=== PATIENT | male | born 1940 | race Caucasian/White ===

== ENCOUNTER 2018-09-06 06:05 | Inpatient (IN) | payer MEDICARE ==
[~2018-09-06] VITALS: Ht 172.7 cm; Wt 94.6 kg
[2018-09-06] VITALS (18 sets, daily range): BP systolic 87–140; BP diastolic 52–64
[2018-09-06] MEDS ORDERED: ZESTRIL5 M1 PO (06:23)
[2018-09-06 06:47] LABS: HEMATOCRIT 49.3 % (39.0-50.0); HEMOGLOBIN 16.5 g/dl (14.0-18.0); IMMATURE GRANULOCYTES 0.5 % (0.0-5.0); MEAN CELL VOLUME 88.8 fL CALC (80.0-100.0); MEAN CORPUSCULAR HGB 29.7 pG CALC (26.0-32.0); MEAN CORPUSCULAR HGB CONC 33.5 g/L CALC (32.0-36.0); NEUT# 8.1 thou/uL (1.82-7.42); RED BLOOD COUNT 5.55 mill/uL (4.70-6.10)
[2018-09-06 07:26] LABS: URINE BLOOD DIPSTICK SMALL (NEGATIVE); URINE COLOR YELLOW; URINE GLUCOSE - DIPSTICK >=1000 mg/dL (NEGATIVE); URINE KETONE >=80 mg/dL (NEGATIVE); URINE LEUK ESTERASE TRACE (NEGATIVE); URINE NITRITE - DIPSTICK NEGATIVE (Negative); URINE PROTEIN - DIPSTICK 30 mg/dL (NEG-TRACE); URINE SPECIFIC GRAVITY 1.025
[2018-09-06 07:34] LABS: BARBITURATES NEGATIVE (NEGATIVE); COCAINE NEGATIVE (NEGATIVE); METHADONE NEGATIVE (NEGATIVE); OXCYCODONE NEGATIVE (NEGATIVE); TETRAHYDROCANNABIONOL NEGATIVE (NEGATIVE); TRICYLIC ANTIDEPRESSANTS NEGATIVE (NEGATIVE); URINE BILIRUBIN - DIPSTICK NEGATIVE (NEGATIVE)
[2018-09-06 07:36] LABS: ALBUMIN 2.9 g/dL (3.2-5.0); ALKALINE PHOSPHATASE 124 u/l (38-126); ANION GAP 26 (6-22 (CALC)); BUN 24 mg/dL (8-23); BUN/CREATININE RATIO 32 (12-20 (CALC)); CARBON DIOXIDE 14 mmol/l (22-30); CHLORIDE 97 mmol/l (95-108); CREATININE 0.7 mg/dL (0.7-1.3); ETHYL ALCOHOL 0 mg/dl (0-30); GFR > 60 ML/MIN (>=60 (CALC)); GFR FOR AFR.AMER. > 60 ML/MIN (>=60 (CALC)); POTASSIUM 4.1 mmol/l (3.5-5.1); SGOT/AST 13 u/l (19-48); SODIUM 132 mmol/l (137-146); TOTAL PROTEIN 5.9 g/dL (6.3-8.2)
[2018-09-06 07:40] LABS: URINE BACTERIA FEW hpf; URINE SQUAMOUS EPITHELIAL CELL FEW EPI/hpf (0-FEW); URINE WBC 50-100 WBC/hpf (0-5)
[2018-09-06 07:47] LABS: MYOGLOBIN 35 ng/mL (0 - 121)
[2018-09-06] MEDS ORDERED: MULTI VIT PO (13:18)
[2018-09-06 21:13] LABS: INTERNATIONAL NORMALIZED RATIO 1.2 RATIO (0.7-1.3); PROTHROMBIN TIME 12.7 SECONDS (9.0-12.5)
[2018-09-07] VITALS (25 sets, daily range): BP systolic 101–191; BP diastolic 46–102
[2018-09-07 05:51] LABS: IMMATURE GRANULOCYTES 0.8 % (0.0-5.0); MEAN CELL VOLUME 89.5 fL CALC (80.0-100.0); MEAN CORPUSCULAR HGB 30.3 pG CALC (26.0-32.0); MEAN CORPUSCULAR HGB CONC 33.9 g/L CALC (32.0-36.0); PLATELET COUNT 225 thou/uL (130-400); RED BLOOD COUNT 4.29 mill/uL (4.70-6.10); RED CELL DISTRI WIDTH 13.4 % (11.5-15.5)
[2018-09-07 05:58] LABS: ALBUMIN 2.4 g/dL (3.2-5.0); ALKALINE PHOSPHATASE 98 u/l (38-126); BILIRUBIN, TOTAL 0.7 mg/dL (0.0-1.4); BUN 18 mg/dL (8-23); BUN/CREATININE RATIO 31 (12-20 (CALC)); CHLORIDE 106 mmol/l (95-108); CREATININE 0.6 mg/dL (0.7-1.3); GFR > 60 ML/MIN (>=60 (CALC)); GFR FOR AFR.AMER. > 60 ML/MIN (>=60 (CALC)); LIPASE 17 u/l (23-300); MAGNESIUM 1.8 mg/dL (1.6-2.3); POTASSIUM 3.8 mmol/l (3.5-5.1); SGOT/AST 13 u/l (19-48); SODIUM 135 mmol/l (137-146); TOTAL PROTEIN 5.3 g/dL (6.3-8.2)
[2018-09-07 06:00] LABS: AMYLASE < 30 u/l (30-110); ANION GAP 16 (6-22 (CALC)); CARBON DIOXIDE 17 mmol/l (22-30)
[2018-09-07 06:51] LABS: HEMATOCRIT 38.4 % (39.0-50.0)
[2018-09-07 06:52] LABS: MANUAL DIFFERENTIAL YES; OTHER CELL TYPE 2
[2018-09-08] VITALS (11 sets, daily range): BP systolic 129–199; BP diastolic 53–88
[2018-09-08 05:17] LABS: ALBUMIN 2.4 g/dL (3.2-5.0); ALKALINE PHOSPHATASE 96 u/l (38-126); BILIRUBIN, TOTAL 0.7 mg/dL (0.0-1.4); BUN 11 mg/dL (8-23); BUN/CREATININE RATIO 24 (12-20 (CALC)); CHLORIDE 105 mmol/l (95-108); CREATININE 0.5 mg/dL (0.7-1.3); GFR > 60 ML/MIN (>=60 (CALC)); GFR FOR AFR.AMER. > 60 ML/MIN (>=60 (CALC)); MAGNESIUM 1.8 mg/dL (1.6-2.3); POTASSIUM 4.1 mmol/l (3.5-5.1); SGOT/AST 15 u/l (19-48); SODIUM 136 mmol/l (137-146); TOTAL PROTEIN 5.3 g/dL (6.3-8.2)
[2018-09-08 05:26] LABS: ANION GAP 14 (6-22 (CALC)); CARBON DIOXIDE 21 mmol/l (22-30); HEMATOCRIT 39.6 % (39.0-50.0); HEMOGLOBIN 13.3 g/dl (14.0-18.0); IMMATURE GRANULOCYTES 0.8 % (0.0-5.0); MEAN CELL VOLUME 88.8 fL CALC (80.0-100.0); MEAN CORPUSCULAR HGB 29.8 pG CALC (26.0-32.0); MEAN CORPUSCULAR HGB CONC 33.6 g/L CALC (32.0-36.0); NEUT# 5.99 thou/uL (1.82-7.42); RED BLOOD COUNT 4.46 mill/uL (4.70-6.10); RED CELL DISTRI WIDTH 13.4 % (11.5-15.5)
[2018-09-09 04:03] VITALS: BP 162/86
[2018-09-09 05:14] LABS: HEMOGLOBIN 13.5 g/dl (14.0-18.0); IMMATURE GRANULOCYTES 0.6 % (0.0-5.0); MEAN CELL VOLUME 87.9 fL CALC (80.0-100.0); MEAN CORPUSCULAR HGB 29.7 pG CALC (26.0-32.0); MEAN CORPUSCULAR HGB CONC 33.8 g/L CALC (32.0-36.0); NEUT# 6.26 thou/uL (1.82-7.42); RED BLOOD COUNT 4.55 mill/uL (4.70-6.10); RED CELL DISTRI WIDTH 13.6 % (11.5-15.5)
[2018-09-09 05:37] LABS: ALBUMIN 2.5 g/dL (3.2-5.0); ALKALINE PHOSPHATASE 105 u/l (38-126); ANION GAP 15 (6-22 (CALC)); BILIRUBIN, TOTAL 0.8 mg/dL (0.0-1.4); BUN 8 mg/dL (8-23); BUN/CREATININE RATIO 15 (12-20 (CALC)); CARBON DIOXIDE 22 mmol/l (22-30); CHLORIDE 103 mmol/l (95-108); CREATININE 0.5 mg/dL (0.7-1.3); GFR > 60 ML/MIN (>=60 (CALC)); GFR FOR AFR.AMER. > 60 ML/MIN (>=60 (CALC)); MAGNESIUM 1.7 mg/dL (1.6-2.3); POTASSIUM 3.6 mmol/l (3.5-5.1); SGOT/AST 14 u/l (19-48); SODIUM 136 mmol/l (137-146); TOTAL PROTEIN 5.5 g/dL (6.3-8.2)
[2018-09-09 08:22] VITALS: BP 165/91
[2018-09-09 11:00] VITALS: BP 149/75
[2018-09-09] MEDS ORDERED: LOSARTAN POT50 MG PO (14:54)
[2018-09-09] MEDS ORDERED: PANTOPRAZOLE SO40 M1 PO (14:54)
[2018-09-09] MEDS ORDERED: LOPRESSOR25 MG PO (14:54)
[2018-09-09] MEDS ORDERED: ROCEPHIN 2 GM2 GM IM (14:55)
[2018-09-09 16:01] VITALS: BP 167/79
== END 2018-09-09 17:10 | DRG 871 ==
LOC: ED 06:05 → ED-I 08:32 → ED 09:11 → MS2 09:12 → ICU 21:48 → MS2 09-07 10:27 → ICU 09-07 10:27 → MS2 09-08 13:14
PROVIDERS: Emergency Medicine; Internal Medicine; ADMIT Internal Medicine Nephrology; ATTEND Internal Medicine Nephrology
DX: A41.51 Sepsis due to Escherichia coli [E. coli] (principal); I63.81 Other cerebral infarction due to occlusion or stenosis of small artery; N39.0 Urinary tract infection, site not specified; E87.2 Acidosis; E87.1 Hypo-osmolality and hyponatremia; I95.9 Hypotension, unspecified; I10 Essential (primary) hypertension; E11.65 Type 2 diabetes mellitus with hyperglycemia; K80.20 Calculus of gallbladder without cholecystitis without obstruction; E86.0 Dehydration; R06.89 Other abnormalities of breathing
CPT/HCPCS: J1650; Q9967

== ENCOUNTER 2019-06-30 | Day surgery (SDC) | payer MEDICARE ==
[~2019-06-30] MED LIST: ASPIRIN81 MG PO; GABAPENTIN100 MG PO; GLIPIZIDE5 MG PO; LOPRESSOR25 MG PO; LOSARTAN POT50 MG PO; METFORMIN500 M2 PO; MULTI VIT PO; PANTOPRAZOLE SO40 M1 PO; ROCEPHIN 2 GM2 GM IM; ZESTRIL5 M1 PO
== END 2019-06-30 11:35 | disposition home health service (06) ==
PROC: 0VB08ZZ Excision of Prostate, Via Natural or Artificial Opening Endoscopic (ICD-10-PCS; principal; 2019-06-30)
DX: N40.1 Benign prostatic hyperplasia with lower urinary tract symptoms (principal); R33.8 Other retention of urine; N39.41 Urge incontinence; R31.0 Gross hematuria; T83.091A Other mechanical complication of indwelling urethral catheter, initial encounter; E11.42 Type 2 diabetes mellitus with diabetic polyneuropathy; I10 Essential (primary) hypertension; Y84.6 Urinary catheterization as the cause of abnormal reaction of the patient, or of later complication, without mention of misadventure at the time of the procedure; Z87.891 Personal history of nicotine dependence; Z79.84 Long term (current) use of oral hypoglycemic drugs; Z87.440 Personal history of urinary (tract) infections